=== PATIENT | female | born 1995 | race Caucasian/White ===

== ENCOUNTER → 2016-10-06 | Outpatient (REF) | LOC: WSOH 13:20 | DX: Z02.1 Encounter for pre-employment examination (principal) ==

== ENCOUNTER → 2016-10-10 | Outpatient (REF) | LOC: WSOH 09:14 | DX: Z02.1 Encounter for pre-employment examination (principal) ==

== ENCOUNTER → 2016-10-18 | Outpatient (REF) | LOC: WSOH 12:00 | DX: Z23 Encounter for immunization (principal) ==

== ENCOUNTER → 2016-12-01 | Outpatient (REF) | LOC: WSOH 16:00 | DX: Z23 Encounter for immunization (principal) ==

== ENCOUNTER → 2017-04-17 | Outpatient (REF) | LOC: WSOH 13:59 | DX: Z01.84 Encounter for antibody response examination (principal) ==

== ENCOUNTER 2017-06-19 17:58 | Emergency (ER) | payer SELFPAY ==
[~2017-06-19] VITALS: Ht 165.1 cm; Wt 59.1 kg
[2017-06-19 18:05] VITALS: BP 137/75; TEMP 98.1
[2017-06-19 19:03] VITALS: PULSE 59
[2017-06-19 19:19] LABS: HIV 1/2 Antibodies Non-Reactive; HIV-1p24 Antigen Non-Reactive
[2017-06-20 14:22] LABS: HEPATITIS C VIRUS ANTIBODY Negative (())
== END 2017-06-19 19:03 | disposition home or self-care (01) ==
LOC: COL.ER 17:58
PROVIDERS: Nurse Practitioner
DX: S61.230A Puncture wound without foreign body of right index finger without damage to nail, initial encounter (principal); W46.0XXA Contact with hypodermic needle, initial encounter; Y99.0 Civilian activity done for income or pay

== ENCOUNTER 2017-07-03 08:23 | Outpatient (RCR) | payer OTHER | END 2017-07-30 14:16 | disposition still patient (30) | LOC: WSOH 08:23 | DX: Z77.21 Contact with and (suspected) exposure to potentially hazardous body fluids (principal); Y92.238 Other place in hospital as the place of occurrence of the external cause; Y99.0 Civilian activity done for income or pay; Z88.0 Allergy status to penicillin ==

== ENCOUNTER → 2018-07-10 | Outpatient (CLI) | payer OTHER ==
[2018-07-10 15:14] LABS: CREATININE, serum 0.79 mg/dL (0.52-1.25)
== END ==
LOC: COL.LAB 14:48
PROVIDERS: Family Medicine
DX: Z11.1 Encounter for screening for respiratory tuberculosis (principal); Z51.81 Encounter for therapeutic drug level monitoring